=== PATIENT | female | born 2000 | race Two or more races ===

== ENCOUNTER 2025-04-02 12:49 | Inpatient (IN) | payer MEDICAID, OTHER ==
[~2025-04-02] VITALS: Ht 157.5 cm; Wt 108.6 kg
--- NOTE | 2025-04-02 13:52 | ED.PDOC ---
History of Present Illness HPI Comments 24 y/o F, presents to the ED for CC of body-pain. Patient states, she has not had anything to eat in the past x12gdmi d/t fasting and is now experiencing symptoms of body pain, nausea, and vomiting. Patient denies diarrhea, fatigue, weakness, faintness, or blurred vision. No other symptoms or modifying factors are present at this time. Chief Complaint: Body Pain Time Seen by MD: 13:45 Reviewed Notes: Nurses Notes, Medications, Allergies Allergies: Coded Allergies: NO KNOWN ALLERGIES (Unverified , 04/02/25) Information Source: Patient Mode of Arrival: Ambulatory Severity: Moderate Timing: Days Duration: Since onset Prehospital treatment: None Past Medical History PAST MEDICAL HISTORY: Denies Surgical History: Denies all surgeries TOBACCO CURER History: Denies all TOBACCO CURER Hx Family History Family History: Unknown Social History Smoker: Non-Smoker Alcohol: Denies ETOH Use Drugs: Denies Drug Use Lives In: Home Constitutional: reports: others (BODY PAIN); denies: chills, diaphoresis, fatigue, fever, malaise, sweats, weakness EENTM: denies: blurred vision, double vision, ear bleeding, ear discharge, ear drainage, ear pain, ear ringing, eye pain, eye redness, hearing loss, mouth pain, mouth swelling, nasal discharge, nose bleeding, nose congestion, nose pain, photophobia, tearing, throat pain, throat swelling, voice changes, others Respiratory: denies: cough, hemoptysis, orthopnea, SOB at rest, shortness of breath, SOB with excertion, stridor, wheezing, others Cardiovascular: denies: chest pain, dizzy spells, diaphoresis, Dyspnea on exertion, edema, irregular heart beat, left arm pain, lightheadedness, palpitations, PND, syncope, others Gastrointestinal: reports: nausea, vomiting; denies: abdomen distended, abdominal pain, blood streaked bowels, constipated, diarrhea, dysphagia, difficulty swallowing, hematemesis, melena, poor appetite, poor fluid intake, rectal bleeding, rectal pain, others Genitourinary: denies: abnormal vagina bleeding, burning, dyspareunia, dysuria, flank pain, frequency, hematuria, incontinence, pain, , vagina discharge, urgency, others Neurological: denies: dizziness, fainting, headache, left sided numbness, left sided weakness, numbness, paresthesia, pre-existing deficit, right sided numbness, right sided weakness, seizure, speech problems, tingling, tremors, weakness, others Musculoskeletal: denies: back pain, gout, joint pain, joint swelling, muscle pain, muscle stiffness, neck pain, others Integumetry: denies: bruises, change in color, change in hair/nails, dryness, laceration, lesions, lumps, rash, wounds, others Allergic/Immunocompromised: denies: Difficulty Healing, Frequent Infections, Hives, Itching, others Hematologic/Lymphatic: denies: anemia, blood clots, easy bleeding, easy bruising, swollen glands, others Endocrine: denies: excessive hunger, excessive sweating, excessive thirst, excessive urination, flushing, intolerance to cold, intolerance to heat, unexplained weight gain, unexplained weight loss, others Psychiatric: denies: anxiety, bipolar disorder, depression, hopeless, panic disorder, schizophrenia, sleepless, suicidal, others All Other Systems: Reviewed and Negative Physical Exam General Appearance: Moderate Distress, Obese HEENT: Normal ENT Inspection, Pharynx Normal, TMs Normal Neck: Full Range of Motion, Non-Tender, Normal, Normal Inspection Respiratory: Chest Non-Tender, Lungs Clear, No Accessory Muscle Use, No Respiratory Distress, Normal Breath Sounds Cardiovascular: No Edema, No JVD, No Murmur, No Gallop, Normal Peripheral Pulses, Regular Rate/Rhythm Breast Exam: Deferred Gastrointestinal: No Organomegaly, Non Tender, No Pulsatile Mass, Normal Bowel Sounds, Soft Genitalia: Deferred Pelvic: Deferred Rectal: Deferred Extremities: No calf tenderness, Normal capillary refill, Normal inspection, Normal range of motion, Non-tender, No pedal edema Musculoskeletal : Apperance: Normal Neurologic: Alert, [employer] and service director II-XII nml as Tested, No Motor Deficits, Normal Affect, Normal Mood, No Sensory Deficits Cerebellar Function: Normal Reflexes: Normal Skin: Dry, Normal Color, Warm Lymphatic: No Adenopathy Was a procedure done? Was a procedure done?: No Differential Dx Considerations may include: DEHYDRATION, ELECTROLYTE IMBALANCE X-Ray, Labs, Meds, VS Vital Signs Date Time Temp Pulse Resp B/P (MAP) Pulse Ox O2 Delivery O2 Flow Rate FiO2 04/02/25 14:32 98 15 98 Room Air* 0 21 04/02/25 13:00 97.7 98 15 135/92 (106) 98 97.7 04/02/25 12:53 97.7 98 15 135/92 98 97.7 Lab Test 04/02/25 14:13 04/02/25 14:12 Range/Units White Blood Count 8.4 4.4-10.8 10^3/uL Red Blood Count 5.34 H 4.0-5.20 10^6/uL Hemoglobin 15.9 12.2-16.2 g/dL Hematocrit 46.1 H 36.0-46.0 % Mean Corpuscular Volume 86.2 80.0-100.0 fL Mean Corpuscular Hemoglobin 29.8 28.0-32.0 pg Mean Corpuscular Hemoglobin Concent 34.5 32.0-36.0 g/dL Red Cell Distribution Width 14.4 H 11.8-14.3 % Platelet Count 313 140-450 10^3/uL Mean Platelet Volume 8.1 6.9-10.8 fL Neutrophils (%) (Auto) 65.7 37.0-80.0 % Lymphocytes (%) (Auto) 25.1 10.0-50.0 % Monocytes (%) (Auto) 8.7 0.0-12.0 % Eosinophils (%) (Auto) 0.2 0.0-7.0 % Basophils (%) (Auto) 0.3 0.0-2.0 % Neutrophils # (Auto) 5.5 1.6-8.6 10 ^3/uL Lymphocytes # (Auto) 2.1 0.4-5.4 10 ^3/uL Monocytes # (Auto) 0.7 0-1.3 10 ^3/uL Eosinophils # (Auto) 0 0-0.8 10 ^3/uL Basophils # (Auto) 0 0-0.2 10 ^3/uL Nucleated Red Blood Cells 0.0 % Sodium Level 141 136-145 mmol/L Potassium Level 4.2 3.5-5.1 mmol/L Chloride Level 108 H 98-107 mmol/L Carbon Dioxide Level 15 L 20-31 mmol/L Anion Gap 18 H 5-15 Blood Urea Nitrogen 13 9-23 mg/dL Creatinine 1.16 H 0.550-1.02 mg/dL Glomerular Filtration Rate Calc 68 >90 mL/min BUN/Creatinine Ratio 11.2 10.0-20.0 Serum Glucose 74 74-106 mg/dL Calcium Level 9.9 8.7-10.4 mg/dL Urine Color Yellow Yellow Urine Clarity Turbid H Clear Urine pH 6.0 5.0-9.0 Urine Specific [place] 1.030 1.001-1.035 Urine Protein 2+ H Negative Urine Ketones 4+ H Negative Urine Blood 1+ H Negative /uL Urine Nitrite Negative Negative Urine Bilirubin 1+ H Negative Urine Urobilinogen 3 H Negative mg/dL Urine Leukocyte Esterase Trace Negative /uL Urine RBC 4 0 - 4 /hpf Urine Microscopic WBC 8 H 0-5 /HPF Urine Squamous Epithelial Cells Mod <5 /hpf Urine Bacteria Few H None Seen /hpf Urine Mucus Few None Seen Urine Glucose Normal Normal mg/dL Urine Test Negative Negative Current Medications Medications (Trade) Dose Ordered Sig/Angel Route Start Time Stop Time Status Last Admin Sodium Chloride 1,000 ml @ 1,000 mls/hr Q1H ONCE IVB 04/02/25 14:00 04/02/25 14:59 DC 04/02/25 14:36 Ondansetron HCl (Zofran) 4 mg ONCE ONCE IV 04/02/25 14:00 04/02/25 14:01 DC 04/02/25 14:36 The patient's urine test is positive for bilirubin as well as ketones and protein The test is negative The CBC is within normal limits The chemistry panel shows a CO2 level of 15. The patient is CBCs given in signs of dehydration. We are going to admit the patient at this time The patient understands and agrees with the management. Time of 1ST Reevaluation: 14:15 Reevaluation 1ST: Unchanged Patient Education/Counseling: Diagnosis, Treatment, Prognosis Family Education/Counseling: No Family Present SEPSIS Sepsis Screen Date sepsis recognized/suspect: Apr 02, 2025 Time Sepsis recognized/suspect: 1255 Recent Procedure: No On Antibiotic Therapy: No Respiratory Rate >20: No Heart Rate >90: No Temp<36 C (96.8 F) or >38.3 C: No SBP <90 or MAP <65 mmHG: No New Acute Mental Status Change: No Is the patient on CPAP, BIPAP,: No Physician Orders Heplock Iv (04/02/25 13:51) Vital Signs Date Time Temp Pulse Resp B/P (MAP) Pulse Ox O2 Delivery O2 Flow Rate FiO2 04/02/25 14:32 98 15 98 Room Air* 0 21 04/02/25 13:00 97.7 98 15 135/92 (106) 98 97.7 04/02/25 12:53 97.7 98 15 135/92 98 97.7 Laboratory Tests Test 04/02/25 14:13 White Blood Count 8.4 10^3/uL (4.4-10.8) Medications Medications Dose Ordered Sig/Angel Route Start Time Stop Time Status Last Admin Dose Admin Ondansetron HCl 4 mg ONCE ONCE IV 04/02/25 14:00 04/02/25 14:01 DC 04/02/25 14:36 Sodium Chloride 1,000 ml @ 1,000 mls/hr Q1H ONCE IVB 04/02/25 14:00 04/02/25 14:59 DC 04/02/25 14:36 Departure 1 Departure Time of Disposition: 15:33 Impression: Primary Impression: Severe dehydration Disposition: ADMITTED INPATIENT Admit to: Med Surg Condition: Fair Critical Care Note Critical Care Time?: No Stability Stability form required: Yes Unstable for transfer: ED Physician Assesment (Clinical assesment) Heart Score Heart Score: Heart Score Response (Comments) Value History N/A 0 EKG N/A 0 Age N/A 0 Risk Factors N/A 0 Troponin N/A 0 Total 0 I personally scribed for ELLIS HOUSER MD ([email or web address]) on 04/02/25 at 13:52. Electronically submitted by Sirena Guadalupe ([email or web address]). ELLIS HOUSER MD Apr 02, 2025 13:52
[2025-04-02 14:32] VITALS: PULSE 98; RESP 15; O2SAT 98
[2025-04-02] MEDS: ONDANSETRON HCL 4 MG/2 ML VIAL IV ONE (14:36)
[2025-04-02] MEDS: SODIUM CHLORIDE 0.9% 1,000 ML IVB ONE (14:36)
[2025-04-02 14:42] LABS: Hematocrit 46.1 % (36.0-46.0); Hemoglobin 15.9 g/dL (12.2-16.2); Mean Corpuscular Hemoglobin 29.8 pg (28.0-32.0); Mean Corpuscular Volume 86.2 fL (80.0-100.0); Nucleated Red Blood Cells % 0.0 %
[2025-04-02 14:47] LABS: Urine Protein, UAD 2+ (Negative)
[2025-04-02 14:52] LABS: Potassium 4.2 mmol/L (3.5-5.1); Sodium 141 mmol/L (136-145)
[2025-04-02 14:53] LABS: Anion Gap 18 (5-15); Calcium 9.9 mg/dL (8.7-10.4)
[2025-04-02 14:58] LABS: BUN/Creatinine Ratio 11.2 (10.0-20.0); Blood Urea Nitrogen 13 mg/dL (9-23); Glucose 74 mg/dL (74-106)
[2025-04-02 15:12] LABS: Carbon Dioxide 15 mmol/L (20-31); Chloride 108 mmol/L (98-107)
--- NOTE | 2025-04-02 20:36 | DVHHPRES ---
History of Present Illness Resident Creating Document: ALEXUS SALGADO RESIDENT History of Present Illness This is a 24-year-old female without significant past medical history, presented to the ER with chief complain of abdominal pain, vomiting and headache. Patient reported that headache started 10 days back when she started fasting, pain is described as pressure-like in frontal area, 10/10, reduces in intensity with cold pack. Eventually, she started complaining of acid reflux, chest pain and abdominal pain 4 days ago. Chest pain is described as burning, 2/10, occurring with acid refluxes. She also complains being constipated since last 4 days, able to pass gas. Patient also has cramp like abdominal pain and vomiting. Abdominal pain is described as cramp like, 4/10, intermittent, radiating to the back. Vomiting started yesterday, watery, some blood seen, associated with chills. Patient also complains of increased urinary urgency. Previous hospitalization: In 2021 for fasting for 30 days PMHx: No significant surgical or medical history Family history: Father has diabetes mellitus and hypertension Social history: Denies smoking, alcohol, recreational drug use. Lives in home with family, full code, next to kin is mother and father Home medication: No home medications Allergic history: No known allergies Patient was examined at bedside today. Patient is ill-appearing, and is admitted for further evaluation and management. Review of Systems Review of Systems ROS: Constitutional: 15 lb weight loss, chills HEENT: Denies changes in vision and hearing. Respiratory: Shortness of breadth, denies cough Cardiovascular: Denies chest discomfort or palpitations GI: Abdominal pain, nausea, vomiting, constipation : Increased urinary frequency Musculoskeletal: Myalgias Skin: Denies rash and pruritus. Neurological: Dizziness, headache, denies vision changes or hearing changes Allergies: Coded Allergies: NO KNOWN ALLERGIES (Unverified , 04/02/25) Exam Vital Signs Vital Signs Date Time Temp Pulse Resp B/P (MAP) Pulse Ox O2 Delivery O2 Flow Rate FiO2 04/02/25 14:32 98 15 98 Room Air* 0 21 04/02/25 13:00 97.7 135/92 (106) 97.7 Exam General: Patient alert and oriented in person, place and time. Patient following commands. HEENT: Normocephalic, atraumatic, moist mucous membranes Respiratory/pulmonary: Clear lungs bilaterally, vesicular murmurs present in almost all lung martinez, no associated crackles or wheezes. Cardiovascular: Normal heart sounds S1 and S2 with no associated murmurs Abdomen: Abdominal tenderness in epigastric area, no palpable masses, soft abdomen Extremities: There is no peripheral edema present at the lower extremities. Peripheral Pulses: 3+ Radial (R). 3+ Radial (L). 3+ Dorsalis pedis (R). 3+ Dorsalis pedis(L) Skin: No rashes or pruritus, there is no sacral edema present at this time. Neurological: Intact cranial nerves with no focal neurologic deficits Labs/Xrays Labs Test 04/02/25 14:13 04/02/25 14:12 Range/Units White Blood Count 8.4 4.4-10.8 10^3/uL Red Blood Count 5.34 H 4.0-5.20 10^6/uL Hemoglobin 15.9 12.2-16.2 g/dL Hematocrit 46.1 H 36.0-46.0 % Mean Corpuscular Volume 86.2 80.0-100.0 fL Mean Corpuscular Hemoglobin 29.8 28.0-32.0 pg Mean Corpuscular Hemoglobin Concent 34.5 32.0-36.0 g/dL Red Cell Distribution Width 14.4 H 11.8-14.3 % Platelet Count 313 140-450 10^3/uL Mean Platelet Volume 8.1 6.9-10.8 fL Neutrophils (%) (Auto) 65.7 37.0-80.0 % Lymphocytes (%) (Auto) 25.1 10.0-50.0 % Monocytes (%) (Auto) 8.7 0.0-12.0 % Eosinophils (%) (Auto) 0.2 0.0-7.0 % Basophils (%) (Auto) 0.3 0.0-2.0 % Neutrophils # (Auto) 5.5 1.6-8.6 10 ^3/uL Lymphocytes # (Auto) 2.1 0.4-5.4 10 ^3/uL Monocytes # (Auto) 0.7 0-1.3 10 ^3/uL Eosinophils # (Auto) 0 0-0.8 10 ^3/uL Basophils # (Auto) 0 0-0.2 10 ^3/uL Nucleated Red Blood Cells 0.0 % Sodium Level 141 136-145 mmol/L Potassium Level 4.2 3.5-5.1 mmol/L Chloride Level 108 H 98-107 mmol/L Carbon Dioxide Level 15 L 20-31 mmol/L Anion Gap 18 H 5-15 Blood Urea Nitrogen 13 9-23 mg/dL Creatinine 1.16 H 0.550-1.02 mg/dL Glomerular Filtration Rate Calc 68 >90 mL/min BUN/Creatinine Ratio 11.2 10.0-20.0 Serum Glucose 74 74-106 mg/dL Calcium Level 9.9 8.7-10.4 mg/dL Urine Color Yellow Yellow Urine Clarity Turbid H Clear Urine pH 6.0 5.0-9.0 Urine Specific [place] 1.030 1.001-1.035 Urine Protein 2+ H Negative Urine Ketones 4+ H Negative Urine Blood 1+ H Negative /uL Urine Nitrite Negative Negative Urine Bilirubin 1+ H Negative Urine Urobilinogen 3 H Negative mg/dL Urine Leukocyte Esterase Trace Negative /uL Urine RBC 4 0 - 4 /hpf Urine Microscopic WBC 8 H 0-5 /HPF Urine Squamous Epithelial Cells Mod <5 /hpf Urine Bacteria Few H None Seen /hpf Urine Mucus Few None Seen Urine Glucose Normal Normal mg/dL Urine Test Negative Negative SEPSIS Sepsis Screen Date sepsis recognized/suspect: Apr 02, 2025 Time Sepsis recognized/suspect: 1255 Recent Procedure: No On Antibiotic Therapy: No Respiratory Rate >20: No Heart Rate >90: No Temp<36 C (96.8 F) or >38.3 C: No SBP <90 or MAP <65 mmHG: No New Acute Mental Status Change: No Is the patient on CPAP, BIPAP,: No Physician Orders Heplock Iv (04/02/25 13:51) Vital Signs Date Time Temp Pulse Resp B/P (MAP) Pulse Ox O2 Delivery O2 Flow Rate FiO2 04/02/25 14:32 98 15 98 Room Air* 0 21 04/02/25 13:00 97.7 98 15 135/92 (106) 98 97.7 04/02/25 12:53 97.7 98 15 135/92 98 97.7 Laboratory Tests Test 04/02/25 14:13 White Blood Count 8.4 10^3/uL (4.4-10.8) Medications Medications Dose Ordered Sig/Angel Route Start Time Stop Time Status Last Admin Dose Admin Ondansetron HCl 4 mg ONCE ONCE IV 04/02/25 14:00 04/02/25 14:01 DC 04/02/25 14:36 4 MG Sodium Chloride 1,000 ml @ 1,000 mls/hr Q1H ONCE IVB 04/02/25 14:00 04/02/25 14:59 DC 04/02/25 14:36 1,000 MLS/HR Assessment/Plan Assessment/Plan Complicated UTI Severe dehydration HEMA hemodynamically mediated (VMN) U/A: positive for UTI Blood culture, urine culture ordered Gonorrhea, chlamydia, HIV test ordered Started on IV Zosyn 3.75 mg q.8 Avoiding nephrotoxins like NSAIDS, contrast Low salt diet, maintain hydration Repeat BMP Fasting ketoacidosis Metabolic acidosis secondary to above Elevated chloride, low HC03, anion gap 18, elevated beta hydroxybutyrate ABG shows pH 7.2, HC03 10 Monitor BMP Phosphate supplementation, started clear liquid diet, Zofran; Advance as tolerated Acute infectious Gastroenteritis, possibly Gastritis, possibly IV Zosyn q8 Continue Carafate 1 g b.i.d., Protonix 40 mg daily Clear liquid diet, advanced as tolerated KUB upright ordered Hepatic steatosis Transaminitis Hyperlipidemia Ultrasound shows [id number] hepatic steatosis DIET: Clear liquid diet DVT PROPHYLAXIS: Lovenox GI PROPHYLAXIS: Protonix CODE STATUS: Goals of care discussed with patient at bedside for more than 35 minutes. Full code DISPOSITION: Med/surge Patient's status and plan discussed with the patient. Case discussed with Dr. Gilbert Plan discussed with: Patient, Other (Nurses) Date of Service: Apr 02, 2025 Billing Provider: AMANDA BURROWS MD Common Visit Codes: 23756-[id number] INP/OBS CARE (HIGH) Secondary Visit Codes: 21312-[id number] CARE PLAN 30 MINUTES ALEXUS SALGADO RESIDENT Apr 02, 2025 20:36 JUAN TRUJILLO RESIDENT Apr 03, 2025 09:32
[2025-04-02 21:10] LABS: Alkaline Phosphatase 101.0 U/L (46-116); Bilirubin, Direct 0.2 mg/dL (<0.3); Bilirubin, Total 0.7 mg/dL (0.2-1.0); Magnesium 2.0 mg/dL (1.6-2.6); Triglycerides 106.0 mg/dL (< 150)
[2025-04-02 21:14] LABS: Alanine Aminotransferase 184.0 U/L (7-40); Albumin 5.3 g/dL (3.2-4.8); Cholesterol 216.0 mg/dL (< 200); HDL Cholesterol 37.0 mg/dL (40-59); Total Protein 9.2 g/dL (5.7-8.2)
[2025-04-02 21:43] LABS: INR 1.13 (0.9-1.15); Partial Thromboplastin Time 28.7 SEC (24.5-34.5); Prothrombin Time 11.8 sec (9.3-11.8)
[2025-04-02 21:44] LABS: Amphetamine Screen, Urine Neg (NEGATIVE); Barbiturate Scree,Urine Neg (NEGATIVE); Benzodiazephine Screen, Urine Neg (NEGATIVE); Cannabinoid Screen, Urine Neg (NEGATIVE); Cocaine Screen, Urine Neg (NEGATIVE); Opiate Scree,Urine Neg (NEGATIVE); Phencyclidine Screen, Urine Neg (NEGATIVE)
[2025-04-02] MEDS ORDERED: MORPHINE SULFATE INJ 2 MG/ml SYRG IV PRN (21:45)
[2025-04-02] MEDS: SODIUM CHLORIDE 0.9% 250 ML IV ONE (21:45)
[2025-04-02] MEDS: POTASSIUM PHOSPHATE 22 MEQ in SODIUM CHL 0.9% 100 ML IV ONE (22:15)
--- NOTE | 2025-04-02 22:56 | DVH ---
Bilateral lower extremity venous duplex Clinical History: Bilateral lower extremity swelling Comparison: None Technique: Duplex Doppler evaluation of the deep venous systems of both lower extremities from the common femora l veins to the popliteal veins including color Doppler and spectral/pulsed waveform analysis was perf ormed. Findings: RIGHT SIDE: The common femoral vein demonstrates appropriate compressibility and waveform variability. There is compressibility/patency of the great saphenous vein at the proximal thigh. The femoral vein demonstrates appropriate compressibility and waveform variability. The deep femoral vein demonstrates appropriate compressibility and waveform variability. The popliteal vein demonstrates appropriate compressibility and waveform variability. There is normal compressibility at the tibioperoneal trunk. LEFT SIDE: The common femoral vein demonstrates appropriate compressibility and waveform variability. There is compressibility/patency of the great saphenous vein at the proximal thigh. The femoral vein demonstrates appropriate compressibility and waveform variability. The deep femoral vein demonstrates appropriate compressibility and waveform variability. The popliteal vein demonstrates appropriate compressibility and waveform variability. There is normal compressibility at the tibioperoneal trunk. Impression: No right or left femoropopliteal venous thrombosis.
--- NOTE | 2025-04-02 22:57 | DVH ---
INDICATION: Transaminitis TECHNIQUE: Multiple real-time sonographic images were obtained of the right upper quadrant. COMPARISON: None FINDINGS: Liver measures 14.4 cm with moderate to severe diffuse fatty infiltration. There is no intrahepatic or extrahepatic ductal dilatation. The common duct is not well seen. The gallbladder is without evidence of stone or sludge. The gallbladder wall measures 0.2 cm and is w ithin normal limits. The right kidney measures 9.5 cm. The right kidney is normal in contour, size, and shape. The echogen icity is normal. There is no hydronephrosis. The pancreas is not well visualized due to overlying bowel gas. IMPRESSION: No acute abnormality. Moderate to severe hepatic steatosis.
[2025-04-02 23:03] LABS: Base Excess -13.8 mmol/L (-2.0-3.0)
[2025-04-02] MEDS: ENOXAPARIN SOD 40 MG/0.4 ML SYRINGE SC SCH (23:37)
[2025-04-03] MEDS: PANTOPRAZOLE 40 MG/10 ML VIAL INJ IV ONE (02:24)
[2025-04-03] MEDS: SODIUM CHLORIDE 0.9% 1,000 ML IV SCH (02:25)
[2025-04-03] MEDS: SODIUM CHLORIDE 0.9% 500 ML IV ONE (02:25)
[2025-04-03 03:32] LABS: Hematocrit 38.4 % (36.0-46.0); Hemoglobin 13.0 g/dL (12.2-16.2); Mean Corpuscular Hemoglobin 29.4 pg (28.0-32.0); Mean Corpuscular Volume 87.1 fL (80.0-100.0); Nucleated Red Blood Cells % 0.0 %
[2025-04-03 03:51] LABS: Albumin 4.0 g/dL (3.2-4.8); Alkaline Phosphatase 79 U/L (46-116); Anion Gap 18 (5-15); BUN/Creatinine Ratio 7.9 (10.0-20.0); Bilirubin, Total 0.5 mg/dL (0.2-1.0); Potassium 3.9 mmol/L (3.5-5.1); Sodium 144 mmol/L (136-145); Total Protein 7.2 g/dL (5.7-8.2)
[2025-04-03 04:12] LABS: Alanine Aminotransferase 128 U/L (7-40); Blood Urea Nitrogen 7 mg/dL (9-23); Calcium 8.5 mg/dL (8.7-10.4); Carbon Dioxide 14 mmol/L (20-31); Chloride 112 mmol/L (98-107); Glucose 71 mg/dL (74-106)
--- NOTE | 2025-04-03 07:15 | DVH ---
ABDOMINAL RADIOGRAPH Indication: Rule out obstruction Technique: Single frontal view of the abdomen was obtained Comparison: None FINDINGS: Lines and tubes: None There is a nonobstructive bowel gas pattern. No supine radiographic evidence of pneumoperitoneum. Bon y structures unremarkable. IMPRESSION: 1. Nonobstructive bowel gas pattern.
[2025-04-03 09:00] VITALS: BP 129/72; PULSE 98; RESP 17; TEMP 98.4; O2SAT 99
[2025-04-03] MEDS: PANTOPRAZOLE 40 MG/10 ML VIAL INJ IV SCH (10:00)
[2025-04-03 10:01] LABS: Magnesium 1.8 mg/dL (1.6-2.6)
[2025-04-03 10:10] LABS: Hepatitis B Surface Antigen Negative (Negative)
[2025-04-03] MEDS: D5W 5% 1,000 ML IV SCH (10:24)
[2025-04-03 10:26] LABS: Hepatitis C Antibody Negative (Negative)
--- NOTE | 2025-04-03 13:26 | DVHPNRES ---
Progress Note Date Seen: Apr 03, 2025 Resident Creating Document: NADIA CISNEROS RESIDENT Medical Necessity Reason Pt with a Central, PICC or Fol: No Subjective Review of Systems This is a 24-year-old female without significant past medical history, presented to the ER with chief complain of abdominal pain, vomiting and headache. Patient reported that headache started 10 days back when she started fasting, pain is described as pressure-like in frontal area, 10/10, reduces in intensity with cold pack. Eventually, she started complaining of acid reflux, chest pain and abdominal pain 4 days ago. Chest pain is described as burning, 2/10, occurring with acid refluxes. She also complains being constipated since last 4 days, able to pass gas. Patient also has cramp like abdominal pain and vomiting. Abdominal pain is described as cramp like, 4/10, intermittent, radiating to the back. Vomiting started yesterday, watery, some blood seen, associated with chills. Patient also complains of increased urinary urgency. Initial lab workup revealed in case anion gap 18, hemoglobin A1c 5.1, AST 112, ALT 184, LDL> 168, beta hydroxybutyrate 4.5, urinalysis revealed ketones 4+, leukocyte esterase trace, WBC 8, bacteria few. Doppler study negative for DVT, liver ultrasound hepatic steatosis, chest x-ray no acute abnormality. Previous hospitalization: In 2021 for fasting for 30 days PMHx: No significant surgical or medical history Family history: Father has diabetes mellitus and hypertension Social history: Denies smoking, alcohol, recreational drug use. Lives in home with family, full code, next to kin is mother and father Home medication: No home medications Allergic history: No known allergies Patient was seen today at bedside, labs and chart reviewed. Patient reported feeling tired. Patient on IV fluid. On ceftriaxone for UTI. Ordered stool WBC, stool bacterial culture. On IV normal saline. Objective vital signs Vital Sign Date Time Temp Pulse Resp B/P (MAP) Pulse Ox O2 Delivery O2 Flow Rate FiO2 04/02/25 21:51 98.8 117 15 132/89 (103) 96 98.8 04/02/25 14:32 Room Air* 0 21 Total Intake and Output 04/02/25 04/02/25 04/03/25 15:00 23:00 07:00 Intake Total 1000 ml Balance 1000 ml medications Current Medications Medications Dose Ordered Sig/Anegl Route Start Time Stop Time Status Last Admin Dose Admin Acetaminophen 325 mg Q4HP PRN PO 04/02/25 21:45 Morphine Sulfate 2 mg Q4HPRN PRN IV 04/02/25 21:45 Enoxaparin Sodium 40 mg DAILY SC 04/02/25 21:45 04/02/25 23:37 40 MG Ceftriaxone Sodium 50 ml @ 100 mls/hr Q24H IV 04/03/25 21:00 Ondansetron HCl 4 mg Q4HPRN PRN IV 04/02/25 22:15 Pantoprazole Sodium 40 mg DAILY IV 04/03/25 10:00 Sucralfate 1 gm BID@0600,2200 GT 04/03/25 22:00 Dextrose 1,000 ml @ 75 mls/hr [id number] IV 04/03/25 09:30 04/03/25 10:24 75 MLS/HR Metronidazole 100 ml @ 100 mls/hr Q8HR IV 04/03/25 14:00 Examination General examination- HEENT- PEERLA, no acute nasal discharge Cardiovascular- S1-S2 audible, rate and rhythm regular, no murmur Respiratory- CTAB, no wheeze or rhonchi Gastrointestinal-mild abdominal tenderness+, , bowel sound+. Nondistended Musculoskeletal-no acute joint swelling or tenderness or redness Lower extremity- no leg edema Neurological- cranial nerves intact, no acute dysarthria or dysphagia Psychiatry- denies depression or SI or HI Skin- no acute rash or purpura laboratory and microbiology Laboratory Tests 04/03/25 02:56 Test 04/03/25 02:56 Range/Units Serum Glucose 71 L 74-106 mg/dL Microbiology Date/Time Source Procedure Growth Status 04/02/25 14:12 Voided Urine Urine Culture - Preliminary Resulted Problem List/Assessment/Plan Problem List/Assessment/Plan Assessment/Plan #Complicated UTI #Severe dehydration #HEMA hemodynamically mediated (VMN) -U/A: positive for UTI -Blood culture, urine culture ordered -Gonorrhea, chlamydia, HIV test ordered -on ceftriaxone and Metrogel Avoiding nephrotoxins like NSAIDS, contrast Low salt diet, maintain hydration Repeat BMP #Fasting /starvation ketoacidosis #Metabolic acidosis secondary to above -Elevated chloride, low HC03, anion gap 18, elevated beta hydroxybutyrate -ABG shows pH 7.2, HC03 10 Monitor BMP -Phosphate supplementation, started clear liquid diet, Zofran; Advance as tolerated #Acute infectious Gastroenteritis, possibly #Gastritis, possibly -continue IV fluid as prescribed Continue Protonix 40 mg daily Mechanical soft diet #Hepatic steatosis #Transaminitis #Hyperlipidemia -Ultrasound shows [id number] hepatic steatosis -monitor LFT Goals of care, Code status full code ; discussed with >15 minutes PUD prophylaxis: Pantoprazole DVT prophylaxis: Patient ambulating Plan discussed with Dr. Samayoa , nursing staff, Total time spent on patient evaluation, chart review, assessment and plan, discussion discussion >35 minutes Plan discussed with: Patient, Other (RN) Date of Service: Apr 03, 2025 Billing Provider: TA SAMAYOA MD, MOHAMMED RESIDENT Apr 03, 2025 13:26
[2025-04-03] MEDS: SODIUM CHLORIDE 0.9% 1,000 ML IV ONE (13:30)
[2025-04-03] MEDS ORDERED: SODIUM CHLORIDE 0.9% 1,000 ML IV SCH (13:30)
[2025-04-03] MEDS ORDERED: SODIUM CHLORIDE 0.9% 1,000 ML IV ONE (15:45)
[2025-04-03] MEDS: LACTATED RINGER'S 1,000 ML IV ONE (16:33)
[2025-04-03 17:00] VITALS: BP 123/88; PULSE 93; RESP 18; TEMP 98.4; O2SAT 100
[2025-04-03] MEDS: ACETAMINOPHEN 325 MG TAB PO PRN (18:52)
[2025-04-03] MEDS: SUCRALFATE 1 GM/10 ML ORAL SUSP GT ONE (20:08)
[2025-04-03] MEDS: LACTULOSE 20Gm/30ML SOLN PO ONE (21:30)
[2025-04-03] MEDS: SUCRALFATE 1 GM/10 ML ORAL SUSP GT SCH (22:00)
[2025-04-04 04:45] LABS: Hematocrit 37.4 % (36.0-46.0); Hemoglobin 13.1 g/dL (12.2-16.2); Mean Corpuscular Hemoglobin 30.0 pg (28.0-32.0); Mean Corpuscular Volume 85.4 fL (80.0-100.0); Nucleated Red Blood Cells % 0.1 %
[2025-04-04 04:55] LABS: Albumin 4.3 g/dL (3.2-4.8); Alkaline Phosphatase 81 U/L (46-116); Anion Gap 17 (5-15); Calcium 8.9 mg/dL (8.7-10.4); Glucose 78 mg/dL (74-106); Magnesium 1.7 mg/dL (1.6-2.6); Sodium 143 mmol/L (136-145); Total Protein 7.5 g/dL (5.7-8.2)
[2025-04-04 04:56] LABS: Bilirubin, Total 0.5 mg/dL (0.2-1.0)
[2025-04-04 05:00] VITALS: BP 117/60; PULSE 85; RESP 20; TEMP 98.4; O2SAT 97
[2025-04-04 05:03] LABS: Alanine Aminotransferase 127 U/L (7-40); BUN/Creatinine Ratio 5.4 (10.0-20.0); Blood Urea Nitrogen < 5 mg/dL (9-23); Carbon Dioxide 18 mmol/L (20-31); Chloride 108 mmol/L (98-107); Potassium 3.5 mmol/L (3.5-5.1)
[2025-04-04] MEDS: SODIUM CHLORIDE 0.9% 1,000 ML IV ONE (08:00)
[2025-04-04 09:10] VITALS: BP 136/81; PULSE 129; RESP 22; TEMP 98; O2SAT 98
[2025-04-04] MEDS: LACTATED RINGER'S 1,000 ML IV ONE (10:18)
[2025-04-04] MEDS: ONDANSETRON HCL 4 MG/2 ML VIAL IV PRN (10:22)
[2025-04-04 13:00] VITALS: BP 112/69; PULSE 85; RESP 18; TEMP 98.5; O2SAT 98
[2025-04-04] MEDS: LACTULOSE 20Gm/30ML SOLN PO ONE (13:59)
[2025-04-04] MEDS: POTASSIUM PHOSPHATE 22 MEQ in SODIUM CHL 0.9% 100 ML IV ONE (14:05)
[2025-04-04 14:30] VITALS: BP 126/81; PULSE 95; RESP 16; TEMP 98.5; O2SAT 97
--- NOTE | 2025-04-04 15:18 | DVHPNRES ---
Progress Note Date Seen: Apr 04, 2025 Resident Creating Document: NADIA CISNEROS RESIDENT Medical Necessity Reason Pt with a Central, PICC or Fol: No Subjective Review of Systems This is a 24-year-old female without significant past medical history, presented to the ER with chief complain of abdominal pain, vomiting and headache. Patient reported that headache started 10 days back when she started fasting, pain is described as pressure-like in frontal area, 10/10, reduces in intensity with cold pack. Eventually, she started complaining of acid reflux, chest pain and abdominal pain 4 days ago. Chest pain is described as burning, 2/10, occurring with acid refluxes. She also complains being constipated since last 4 days, able to pass gas. Patient also has cramp like abdominal pain and vomiting. Abdominal pain is described as cramp like, 4/10, intermittent, radiating to the back. Vomiting started yesterday, watery, some blood seen, associated with chills. Patient also complains of increased urinary urgency. Initial lab workup revealed in case anion gap 18, hemoglobin A1c 5.1, AST 112, ALT 184, LDL> 168, beta hydroxybutyrate 4.5, urinalysis revealed ketones 4+, leukocyte esterase trace, WBC 8, bacteria few. Doppler study negative for DVT, liver ultrasound hepatic steatosis, chest x-ray no acute abnormality. Previous hospitalization: In 2021 for fasting for 30 days PMHx: No significant surgical or medical history Family history: Father has diabetes mellitus and hypertension Social history: Denies smoking, alcohol, recreational drug use. Lives in home with family, full code, next to kin is mother and father Home medication: No home medications Allergic history: No known allergies Patient was seen today at bedside, labs and chart reviewed. Patient reported nausea, had 1 tab mild vomiting, no blood. Feeling tired. Ordered IV fluid. We will continue monitoring. Urinalysis negative for UTI. Objective vital signs Vital Sign Date Time Temp Pulse Resp B/P (MAP) Pulse Ox O2 Delivery O2 Flow Rate FiO2 04/04/25 13:00 98.5 85 18 112/69 (83) 98 98.5 04/02/25 14:32 Room Air* 0 21 Total Intake and Output 04/03/25 04/03/25 04/04/25 15:00 23:00 07:00 Intake Total 770 ml 100 ml Balance 770 ml 100 ml medications Current Medications Medications Dose Ordered Sig/Angel Route Start Time Stop Time Status Last Admin Dose Admin Acetaminophen 325 mg Q4HP PRN PO 04/02/25 21:45 04/04/25 10:24 325 MG Morphine Sulfate 2 mg Q4HPRN PRN IV 04/02/25 21:45 Ceftriaxone Sodium 50 ml @ 100 mls/hr Q24H IV 04/03/25 21:00 04/03/25 21:10 100 MLS/HR Ondansetron HCl 4 mg Q4HPRN PRN IV 04/02/25 22:15 04/04/25 10:22 4 MG Pantoprazole Sodium 40 mg DAILY IV 04/03/25 10:00 04/04/25 10:21 40 MG Metronidazole 100 ml @ 100 mls/hr Q8HR IV 04/03/25 14:00 04/04/25 06:10 100 MLS/HR Examination General examination- awake, alert, oriented HEENT- PEERLA, no acute nasal discharge Cardiovascular- S1-S2 audible, rate and rhythm regular, no murmur Respiratory- CTAB, no wheeze or rhonchi Gastrointestinal-abdomen nontender , bowel sound+. Nondistended Musculoskeletal-no acute joint swelling or tenderness or redness Lower extremity- no leg edema Neurological- cranial nerves intact, no acute dysarthria or dysphagia Psychiatry- denies depression or SI or HI Skin- no acute rash or purpura laboratory and microbiology Laboratory Tests 04/04/25 03:47 Test 04/04/25 03:47 Range/Units Serum Glucose 78 74-106 mg/dL Microbiology Date/Time Source Procedure Growth Status 04/02/25 14:12 Voided Urine Urine Culture - Preliminary Resulted Problem List/Assessment/Plan Problem List/Assessment/Plan Assessment/Plan #Complicated UTI #Severe dehydration #HEMA hemodynamically mediated (VMN) -U/A: positive for UTI -Blood culture, urine culture ordered -Gonorrhea, chlamydia, HIV test ordered -on ceftriaxone and metronidazole Avoiding nephrotoxins like NSAIDS, contrast Low salt diet, maintain hydration Repeat BMP -urine culture negative #Fasting /starvation ketoacidosis #Metabolic acidosis secondary to above -Elevated chloride, low HC03, anion gap 18, elevated beta hydroxybutyrate -ABG shows pH 7.2, HC03 10 Monitor BMP -Phosphate supplementation, started clear liquid diet, Zofran; Advance as tolerated #Acute infectious Gastroenteritis, possibly #Gastritis, possibly -continue IV fluid as prescribed Continue Protonix 40 mg daily Mechanical soft diet #Hepatic steatosis #Transaminitis #Hyperlipidemia -Ultrasound shows [id number] hepatic steatosis -monitor LFT Goals of care, Code status full code ; discussed with >15 minutes PUD prophylaxis: Pantoprazole DVT prophylaxis: Patient ambulating Plan discussed with Dr. Genao , nursing staff, Total time spent on patient evaluation, chart review, assessment and plan, discussion discussion >35 minutes Plan discussed with: Patient, Other (RN, father) My Orders My Orders Orders - NADIA CISNEROS Procedure Category Date Status Time Potassium Phosphate PHA 04/04/25 In Process 12:00 Clear Liq Diet DIET 04/04/25 Transmitted Lunch Electrocardigram EKG 04/04/25 Logged 11:59 Date of Service: Apr 04, 2025 Billing Provider: NADIA CISNEROS MOHAMMED RESIDENT Apr 04, 2025 15:18
[2025-04-04] MEDS ORDERED: HYDROcodone-ACET 5/325MG TAB PO PRN (15:30)
[2025-04-04] MEDS: HYDROcodone-ACET 5/325MG TAB PO ONE (17:03)
[2025-04-04 19:28] LABS: Alkaline Phosphatase 80 U/L (46-116); Anion Gap 17 (5-15); Calcium 8.9 mg/dL (8.7-10.4); Chloride 107 mmol/L (98-107); Glucose 77 mg/dL (74-106); Sodium 143 mmol/L (136-145); Total Protein 7.0 g/dL (5.7-8.2)
[2025-04-04 19:29] LABS: Albumin 4.1 g/dL (3.2-4.8); Bilirubin, Total 0.5 mg/dL (0.2-1.0)
[2025-04-04 19:32] LABS: Alanine Aminotransferase 123 U/L (7-40); BUN/Creatinine Ratio 6.3 (10.0-20.0); Blood Urea Nitrogen < 5 mg/dL (9-23); Carbon Dioxide 19 mmol/L (20-31); Potassium 3.0 mmol/L (3.5-5.1)
[2025-04-04 20:00] VITALS: PULSE 88; RESP 18; O2SAT 99
[2025-04-04 21:18] VITALS: BP 111/70; PULSE 87; RESP 16; TEMP 97.1; O2SAT 98
[2025-04-05] MEDS: POTASSIUM CHL 20 Meq TABLET PO ONE ×2 (00:25→08:08)
[2025-04-05 01:00] VITALS: BP 109/77; PULSE 81; RESP 17; TEMP 97.5; O2SAT 97
[2025-04-05 06:04] LABS: Hematocrit 33.4 % (36.0-46.0); Hemoglobin 11.6 g/dL (12.2-16.2); Mean Corpuscular Hemoglobin 29.6 pg (28.0-32.0); Mean Corpuscular Volume 85.0 fL (80.0-100.0); Nucleated Red Blood Cells % 0.1 %
[2025-04-05 06:27] LABS: Albumin 3.6 g/dL (3.2-4.8); Alkaline Phosphatase 69 U/L (46-116); Anion Gap 15 (5-15); Calcium 8.7 mg/dL (8.7-10.4); Carbon Dioxide 20 mmol/L (20-31); Chloride 107 mmol/L (98-107); Magnesium 1.7 mg/dL (1.6-2.6); Sodium 142 mmol/L (136-145); Total Protein 6.4 g/dL (5.7-8.2)
[2025-04-05 06:28] LABS: Bilirubin, Total 0.5 mg/dL (0.2-1.0)
[2025-04-05 06:31] LABS: Alanine Aminotransferase 105 U/L (7-40); BUN/Creatinine Ratio 6.6 (10.0-20.0); Blood Urea Nitrogen < 5 mg/dL (9-23); Glucose 71 mg/dL (74-106); Potassium 3.3 mmol/L (3.5-5.1)
--- NOTE | 2025-04-05 07:38 | ECG ---
[facility] Test Date: 2025-04-04 Test Time: 12:55:28 Pat Name: FLORENCE MUNOZ Department: Respiratoy Room: [address] [place] [address] 1 Gender: F Restaurant Operations Manager: FOSTER : 2000 Requested By: NADIA CISNEROS Order Number: [id number] Reading MD: Reggie Iraheta Measurements Intervals [place] Rate: 89 P: 72 WI: 147 QRS: 38 QRSD: 87 T: 5 QT: 351 QTc: 428 Interpretive Statements Sinus rhythm Electronically Signed On 04-05-2025 9:07:18 PDT by Reggie Iraheta Please click the below link to view image of tracing.
[2025-04-05 08:00] VITALS: PULSE 78; RESP 18; O2SAT 99
[2025-04-05 09:00] VITALS: BP 104/71; PULSE 92; RESP 16; TEMP 98.2; O2SAT 99
[2025-04-05] MEDS: MAALOX PLUS or MAALOX 30 ML PO ONE (12:00)
[2025-04-05 13:31] VITALS: BP 101/65; PULSE 82; RESP 16; TEMP 98.1; O2SAT 98
[2025-04-05] MEDS: MAALOX PLUS or MAALOX 30 ML PO SCH (14:00)
--- NOTE | 2025-04-05 14:24 | DVHPNRES ---
Progress Note Date Seen: Apr 05, 2025 Resident Creating Document: NADIA CISNEROS RESIDENT Medical Necessity Reason Pt with a Central, PICC or Fol: No Subjective Review of Systems This is a 24-year-old female without significant past medical history, presented to the ER with chief complain of abdominal pain, vomiting and headache. Patient reported that headache started 10 days back when she started fasting, pain is described as pressure-like in frontal area, 10/10, reduces in intensity with cold pack. Eventually, she started complaining of acid reflux, chest pain and abdominal pain 4 days ago. Chest pain is described as burning, 2/10, occurring with acid refluxes. She also complains being constipated since last 4 days, able to pass gas. Patient also has cramp like abdominal pain and vomiting. Abdominal pain is described as cramp like, 4/10, intermittent, radiating to the back. Vomiting started yesterday, watery, some blood seen, associated with chills. Patient also complains of increased urinary urgency. Initial lab workup revealed in case anion gap 18, hemoglobin A1c 5.1, AST 112, ALT 184, LDL> 168, beta hydroxybutyrate 4.5, urinalysis revealed ketones 4+, leukocyte esterase trace, WBC 8, bacteria few. Doppler study negative for DVT, liver ultrasound hepatic steatosis, chest x-ray no acute abnormality. Previous hospitalization: In 2021 for fasting for 30 days PMHx: No significant surgical or medical history Family history: Father has diabetes mellitus and hypertension Social history: Denies smoking, alcohol, recreational drug use. Lives in home with family, full code, next to kin is mother and father Home medication: No home medications Allergic history: No known allergies Patient was seen today at bedside, labs and chart reviewed. Patient reported nausea, vomiting. Hypokalemia corrected. Patient reports feeling fatigued and tired. Stool for WBC negative. Objective vital signs Vital Sign Date Time Temp Pulse Resp B/P (MAP) Pulse Ox O2 Delivery O2 Flow Rate FiO2 04/05/25 13:31 98.1 82 16 101/65 (77) 98 98.1 04/05/25 08:00 Room Air* 0 21 Total Intake and Output 04/04/25 04/04/25 04/05/25 15:00 23:00 07:00 Intake Total 100 ml 800 ml Balance 100 ml 800 ml medications Current Medications Medications Dose Ordered Sig/Angel Route Start Time Stop Time Status Last Admin Dose Admin Acetaminophen 325 mg Q4HP PRN PO 04/02/25 21:45 04/05/25 08:29 325 MG Morphine Sulfate 2 mg Q4HPRN PRN IV 04/02/25 21:45 Ceftriaxone Sodium 50 ml @ 100 mls/hr Q24H IV 04/03/25 21:00 04/04/25 21:50 100 MLS/HR Ondansetron HCl 4 mg Q4HPRN PRN IV 04/02/25 22:15 04/05/25 08:23 4 MG Metronidazole 100 ml @ 100 mls/hr Q8HR IV 04/03/25 14:00 04/05/25 14:18 100 MLS/HR Al Hydrox/Mg Hydrox/Simethicone 15 ml Q8HP PO 04/05/25 14:00 Al Hydrox/Mg Hydrox/Simethicone 30 ml Q8HP PRN PO 04/05/25 11:15 Pantoprazole Sodium 40 mg BID@0600,1700 PO 04/05/25 17:00 Examination General examination- awake, alert, oriented HEENT- PEERLA, no acute nasal discharge Cardiovascular- S1-S2 audible, rate and rhythm regular, no murmur Respiratory- CTAB, no wheeze or rhonchi Gastrointestinal-abdomen nontender , bowel sound+. Nondistended Musculoskeletal-no acute joint swelling or tenderness or redness Lower extremity- no leg edema Neurological- cranial nerves intact, no acute dysarthria or dysphagia Psychiatry- denies depression or SI or HI Skin- no acute rash or purpura laboratory and microbiology Laboratory Tests 04/05/25 12:45 04/05/25 04:50 Test 04/05/25 04:50 Range/Units Serum Glucose 71 L 74-106 mg/dL Microbiology Date/Time Source Procedure Growth Status 04/04/25 15:30 Stool Stool Culture - Preliminary Resulted 04/04/25 15:30 Stool Shiga Toxin I & II Pending Resulted 04/02/25 14:12 Voided Urine Urine Culture - Final Complete Problem List/Assessment/Plan Problem List/Assessment/Plan Assessment/Plan # suspected UTI #Severe dehydration # suspected acute gastroenteritis #HEMA hemodynamically mediated (VMN) -U/A: positive for UTI -on ceftriaxone and metronidazole Avoiding nephrotoxins like NSAIDS, contrast -urine culture negative #Fasting /starvation ketoacidosis #Metabolic acidosis secondary to above -Elevated chloride, low HC03, anion gap 18, elevated beta hydroxybutyrate -ABG shows pH 7.2, HC03 10 Monitor BMP -Phosphate supplementation, Zofran PRN #Acute infectious Gastroenteritis, possibly #Gastritis, possibly -continue IV fluid as prescribed Continue Protonix 40 mg daily Full liquid diet -ordered Maalox -continue current management #Hepatic steatosis #Transaminitis #Hyperlipidemia -Ultrasound shows [id number] hepatic steatosis -monitor LFT Goals of care, Code status full code ; discussed with >15 minutes PUD prophylaxis: Pantoprazole DVT prophylaxis: Patient ambulating Plan discussed with Dr. Genao , nursing staff, Total time spent on patient evaluation, chart review, assessment and plan, discussion discussion >35 minutes Plan discussed with: Patient, Other (RN) My Orders My Orders Orders - NADIA CISNEROS Procedure Category Date Status Time Out Of Bed Ambulate SUSSY 04/04/25 In Process 15:18 Communication Order ORDERS 04/04/25 Transmitted 22:22 * Fraud Examiner CONS 04/05/25 Transmitted Consult Full Liq Diet DIET 04/05/25 Transmitted Lunch Alum & Mag PHA 04/05/25 In Process Hydrox-Simethicone 14:00 Dietary Evaluation Review Comments: Nutrition Recommendation: 1) Advance to soft diet as medically feasible 2) Monitor PO intake, lab values, weight trend, and I/O Expected Outcomes/Goals: Intake to meet >75% estimated needs Fu 3-5 days Date of Service: Apr 05, 2025 Billing Provider: NADIA CISNEROS MOHAMMED RESIDENT Apr 05, 2025 14:23
[2025-04-05 17:00] VITALS: BP 117/69; PULSE 90; RESP 16; TEMP 98.5; O2SAT 99
[2025-04-05] MEDS ORDERED: POTASSIUM EFFERVESENT TAB 25 MEQ GT ONE (17:15)
[2025-04-05] MEDS: PANTOPRAZOLE 40 MG TAB PO SCH (17:16)
[2025-04-05] MEDS: MAGNESIUM OXIDE 400 MG TAB PO ONE (17:40)
[2025-04-05] MEDS: POTASSIUM EFFERVESENT TAB 25 MEQ PO ONE (17:40)
[2025-04-05] MEDS: MAALOX PLUS or MAALOX 30 ML PO PRN (20:08)
[2025-04-05 21:00] VITALS: BP 121/72; PULSE 95; RESP 18; TEMP 98.2; O2SAT 99
[2025-04-06] VITALS (7 sets, daily range): BP systolic 92–100; BP diastolic 49–67; PULSE 75–91; RESP 15–20; TEMP 97.5–98; O2SAT 95–99
[2025-04-06 05:49] LABS: Hematocrit 35.7 % (36.0-46.0); Hemoglobin 12.5 g/dL (12.2-16.2); Mean Corpuscular Hemoglobin 30.0 pg (28.0-32.0); Mean Corpuscular Volume 85.6 fL (80.0-100.0); Nucleated Red Blood Cells % 0.1 %
[2025-04-06 06:08] LABS: Albumin 3.8 g/dL (3.2-4.8); Alkaline Phosphatase 74 U/L (46-116); Anion Gap 14 (5-15); Calcium 8.9 mg/dL (8.7-10.4); Carbon Dioxide 25 mmol/L (20-31); Chloride 104 mmol/L (98-107); Glucose 77 mg/dL (74-106); Magnesium 1.9 mg/dL (1.6-2.6); Sodium 143 mmol/L (136-145); Total Protein 6.7 g/dL (5.7-8.2)
[2025-04-06 06:09] LABS: Alanine Aminotransferase 106 U/L (7-40); BUN/Creatinine Ratio 6.6 (10.0-20.0); Bilirubin, Total 0.4 mg/dL (0.2-1.0); Blood Urea Nitrogen < 5 mg/dL (9-23); Potassium 3.1 mmol/L (3.5-5.1)
[2025-04-06] MEDS: POTASSIUM EFFERVESENT TAB 25 MEQ PO ONE (07:00)
[2025-04-06] MEDS: MAGNESIUM SULFATE 1GM/100ML 100 ML IV ONE (07:06)
[2025-04-06] MEDS ORDERED: POTASSIUM EFFERVESENT TAB 25 MEQ PO ONE (07:45)
[2025-04-06 09:45] LABS: Urine Protein, UAD 1+ (Negative)
[2025-04-06] MEDS: LACTATED RINGER'S 1,000 ML IV ONE (11:13)
--- NOTE | 2025-04-06 12:41 | DVHPNRES ---
Progress Note Date Seen: Apr 06, 2025 Resident Creating Document: NADIA CISNEROS RESIDENT Medical Necessity Reason Pt with a Central, PICC or Fol: No Subjective Review of Systems This is a 24-year-old female without significant past medical history, presented to the ER with chief complain of abdominal pain, vomiting and headache. Patient reported that headache started 10 days back when she started fasting, pain is described as pressure-like in frontal area, 10/10, reduces in intensity with cold pack. Eventually, she started complaining of acid reflux, chest pain and abdominal pain 4 days ago. Chest pain is described as burning, 2/10, occurring with acid refluxes. She also complains being constipated since last 4 days, able to pass gas. Patient also has cramp like abdominal pain and vomiting. Abdominal pain is described as cramp like, 4/10, intermittent, radiating to the back. Vomiting started yesterday, watery, some blood seen, associated with chills. Patient also complains of increased urinary urgency. Initial lab workup revealed in case anion gap 18, hemoglobin A1c 5.1, AST 112, ALT 184, LDL> 168, beta hydroxybutyrate 4.5, urinalysis revealed ketones 4+, leukocyte esterase trace, WBC 8, bacteria few. Doppler study negative for DVT, liver ultrasound hepatic steatosis, chest x-ray no acute abnormality. Previous hospitalization: In 2021 for fasting for 30 days PMHx: No significant surgical or medical history Family history: Father has diabetes mellitus and hypertension Social history: Denies smoking, alcohol, recreational drug use. Lives in home with family, full code, next to kin is mother and father Home medication: No home medications Allergic history: No known allergies Patient was seen today at bedside, labs and chart reviewed. Patient reported MiraLax helping her, complained of mild nausea. Hypokalemia being corrected with potassium supplement. Ordered repeat urinalysis. Stool negative for shiga toxin. Objective vital signs Vital Sign Date Time Temp Pulse Resp B/P (MAP) Pulse Ox O2 Delivery O2 Flow Rate FiO2 04/06/25 05:00 97.5 75 16 95/57 (70) 99 97.5 04/05/25 20:00 Room Air* 0 21 Total Intake and Output 04/05/25 04/05/25 04/06/25 15:00 23:00 07:00 Intake Total 750 ml 218 ml Balance 750 ml 218 ml medications Current Medications Medications Dose Ordered Sig/Angel Route Start Time Stop Time Status Last Admin Dose Admin Acetaminophen 325 mg Q4HP PRN PO 04/02/25 21:45 04/06/25 09:16 325 MG Morphine Sulfate 2 mg Q4HPRN PRN IV 04/02/25 21:45 Ceftriaxone Sodium 50 ml @ 100 mls/hr Q24H IV 04/03/25 21:00 04/05/25 20:17 100 MLS/HR Ondansetron HCl 4 mg Q4HPRN PRN IV 04/02/25 22:15 04/05/25 17:16 4 MG Metronidazole 100 ml @ 100 mls/hr Q8HR IV 04/03/25 14:00 04/06/25 05:03 100 MLS/HR Al Hydrox/Mg Hydrox/Simethicone 15 ml Q8HP PO 04/05/25 14:00 04/06/25 05:02 15 ML Al Hydrox/Mg Hydrox/Simethicone 30 ml Q8HP PRN PO 04/05/25 11:15 04/05/25 20:08 30 ML Pantoprazole Sodium 40 mg BID@0600,1700 PO 04/05/25 17:00 04/06/25 05:02 40 MG Examination General examination- awake, alert, oriented HEENT- PEERLA, no acute nasal discharge Cardiovascular- S1-S2 audible, rate and rhythm regular, no murmur Respiratory- CTAB, no wheeze or rhonchi Gastrointestinal-abdomen nontender , bowel sound+. Nondistended Musculoskeletal-no acute joint swelling or tenderness or redness Lower extremity- no leg edema Neurological- cranial nerves intact, no acute dysarthria or dysphagia Psychiatry- denies depression or SI or HI Skin- no acute rash or purpura laboratory and microbiology Laboratory Tests 04/06/25 04:00 Test 04/06/25 04:00 Range/Units Serum Glucose 77 74-106 mg/dL Microbiology Date/Time Source Procedure Growth Status 04/04/25 15:30 Stool Stool Culture - Preliminary Resulted 04/04/25 15:30 Stool Shiga Toxin I & II - Final Resulted 04/02/25 14:12 Voided Urine Urine Culture - Final Complete Problem List/Assessment/Plan Problem List/Assessment/Plan Assessment/Plan # suspected UTI #Severe dehydration # suspected acute gastroenteritis #HEMA hemodynamically mediated (VMN) Repeat urinalysis revealed leukocyte esterase 1+, WBC 9, blood 1+. Ordered uterine culture -on ceftriaxone and metronidazole Avoiding nephrotoxins like NSAIDS, contrast -Stool negative for shiga toxin. #Fasting /starvation ketoacidosis #Metabolic acidosis secondary to above -continue current conservative managed #Acute infectious Gastroenteritis, possibly #Gastritis, possibly --continue Protonix p.o. as prescribed -Maalox as prescribed #Hepatic steatosis #Transaminitis #Hyperlipidemia -Ultrasound shows [id number] hepatic steatosis -monitor LFT Goals of care, Code status full code ; discussed with >15 minutes PUD prophylaxis: Pantoprazole DVT prophylaxis: Patient ambulating Plan discussed with Dr. Samayoa , nursing staff, Total time spent on patient evaluation, chart review, assessment and plan, discussion discussion >35 minutes Plan discussed with: Patient, Other (RN) My Orders My Orders Orders - NADIA CISNEROS Procedure Category Date Status Time Communication Order ORDERS 04/06/25 Transmitted 06:49 Soft Diet DIET 04/06/25 Transmitted Breakfast Potassium Chloride PHA 04/06/25 In Process (Potassium Chloride). 11:45 Dietary Evaluation Review Comments: Nutrition Recommendation: 1) Advance to soft diet as medically feasible 2) Monitor PO intake, lab values, weight trend, and I/O Expected Outcomes/Goals: Intake to meet >75% estimated needs Fu 3-5 days Date of Service: Apr 06, 2025 Billing Provider: TA SAMAYOA MD, MOHAMMED RESIDENT Apr 06, 2025 12:41
[2025-04-06] MEDS: POTASSIUM CHLORIDE 60 MEQ, LIDOCAINE 1% (LOCAL ANESTH.) 6 ML in SODIUM CHL 0.9% 500 ML IV ONE (13:41)
[2025-04-07] VITALS (7 sets, daily range): BP systolic 92–121; BP diastolic 58–79; PULSE 68–91; RESP 18–20; TEMP 97.8–98.8; O2SAT 96–99
[2025-04-07 05:53] LABS: Albumin 3.4 g/dL (3.2-4.8); Alkaline Phosphatase 70 U/L (46-116); Anion Gap 11 (5-15); Carbon Dioxide 26 mmol/L (20-31); Chloride 106 mmol/L (98-107); Magnesium 2.1 mg/dL (1.6-2.6); Sodium 143 mmol/L (136-145); Total Protein 6.0 g/dL (5.7-8.2)
[2025-04-07 06:01] LABS: Alanine Aminotransferase 79 U/L (7-40); BUN/Creatinine Ratio 7.4 (10.0-20.0); Bilirubin, Total 0.2 mg/dL (0.2-1.0); Blood Urea Nitrogen < 5 mg/dL (9-23); Calcium 8.5 mg/dL (8.7-10.4); Glucose 111 mg/dL (74-106); Potassium 3.2 mmol/L (3.5-5.1)
[2025-04-07] MEDS: POTASSIUM CHLORIDE 40 MEQ, LIDOCAINE 1% (LOCAL ANESTH.) 4 ML in SODIUM CHL 0.9% 250 ML IV ONE (14:06)
--- NOTE | 2025-04-07 16:57 | DVHPNRES ---
Progress Note Date Seen: Apr 07, 2025 Resident Creating Document: NADIA CISNEROS RESIDENT Medical Necessity Reason Pt with a Central, PICC or Fol: No Subjective Review of Systems This is a 24-year-old female without significant past medical history, presented to the ER with chief complain of abdominal pain, vomiting and headache. Patient reported that headache started 10 days back when she started fasting, pain is described as pressure-like in frontal area, 10/10, reduces in intensity with cold pack. Eventually, she started complaining of acid reflux, chest pain and abdominal pain 4 days ago. Chest pain is described as burning, 2/10, occurring with acid refluxes. She also complains being constipated since last 4 days, able to pass gas. Patient also has cramp like abdominal pain and vomiting. Abdominal pain is described as cramp like, 4/10, intermittent, radiating to the back. Vomiting started yesterday, watery, some blood seen, associated with chills. Patient also complains of increased urinary urgency. Initial lab workup revealed in case anion gap 18, hemoglobin A1c 5.1, AST 112, ALT 184, LDL> 168, beta hydroxybutyrate 4.5, urinalysis revealed ketones 4+, leukocyte esterase trace, WBC 8, bacteria few. Doppler study negative for DVT, liver ultrasound hepatic steatosis, chest x-ray no acute abnormality. Previous hospitalization: In 2021 for fasting for 30 days PMHx: No significant surgical or medical history Family history: Father has diabetes mellitus and hypertension Social history: Denies smoking, alcohol, recreational drug use. Lives in home with family, full code, next to kin is father Home medication: No home medications Allergic history: No known allergies Patient was seen today at bedside, labs and chart reviewed. Patient reported feeling better today but still ongoing some nausea. Serum potassium 3.2, supplemented. Pending urine culture report. Objective vital signs Vital Sign Date Time Temp Pulse Resp B/P (MAP) Pulse Ox O2 Delivery O2 Flow Rate FiO2 04/07/25 13:00 98.8 85 20 114/70 (85) 96 98.8 04/07/25 08:00 Room Air* 0 21 Total Intake and Output 04/06/25 04/06/25 04/07/25 15:00 23:00 07:00 Intake Total 1000 ml 950 ml 400 ml Balance 1000 ml 950 ml 400 ml medications Current Medications Medications Dose Ordered Sig/Angel Route Start Time Stop Time Status Last Admin Dose Admin Acetaminophen 325 mg Q4HP PRN PO 04/02/25 21:45 04/07/25 12:59 325 MG Morphine Sulfate 2 mg Q4HPRN PRN IV 04/02/25 21:45 Ceftriaxone Sodium 50 ml @ 100 mls/hr Q24H IV 04/03/25 21:00 04/06/25 21:05 100 MLS/HR Ondansetron HCl 4 mg Q4HPRN PRN IV 04/02/25 22:15 04/05/25 17:16 4 MG Metronidazole 100 ml @ 100 mls/hr Q8HR IV 04/03/25 14:00 04/07/25 05:13 100 MLS/HR Al Hydrox/Mg Hydrox/Simethicone 15 ml Q8HP PO 04/05/25 14:00 04/07/25 14:35 15 ML Pantoprazole Sodium 40 mg BID@0600,1700 PO 04/05/25 17:00 04/07/25 05:13 40 MG Examination General examination- awake, alert, oriented; morbid obesity HEENT- PEERLA, no acute nasal discharge Cardiovascular- S1-S2 audible, rate and rhythm regular, no murmur Respiratory- CTAB, no wheeze or rhonchi Gastrointestinal-abdomen nontender , bowel sound+. Nondistended Musculoskeletal-no acute joint swelling or tenderness or redness Lower extremity- no leg edema Neurological- cranial nerves intact, no acute dysarthria or dysphagia Psychiatry- denies depression or SI or HI Skin- no acute rash or purpura laboratory and microbiology Laboratory Tests 04/07/25 05:05 04/06/25 04:00 Test 04/07/25 05:05 Range/Units Serum Glucose 111 H 74-106 mg/dL Microbiology Date/Time Source Procedure Growth Status 04/06/25 09:27 Voided Urine Urine Culture - Preliminary Resulted 04/04/25 15:30 Stool Stool Culture - Final Complete 04/04/25 15:30 Stool Shiga Toxin I & II - Final Complete Labs and/or images reviewed: Labs reviewed by me, Image(s) reviewed by me Problem List/Assessment/Plan Problem List/Assessment/Plan Assessment/Plan # suspected UTI # Severe dehydration # suspected acute gastroenteritis # HEMA hemodynamically mediated (VMN) -Repeat urinalysis revealed leukocyte esterase 1+, WBC 9, blood 1+. Pending urine culture -on ceftriaxone and metronidazole Avoiding nephrotoxins like NSAIDS, contrast -Stool negative for shiga toxin. # Refractory Hypokalemia -ordered mg level -scheduled potassium -ordered cortisol levels #Starvation ketoacidosis #Metabolic acidosis secondary to above -continue current conservative managed -on ceftriaxone and metronidazole #Acute infectious Gastroenteritis, possibly #Gastritis, possibly -continue Protonix p.o. as prescribed -Maalox as prescribed -on ceftriaxone and metronidazole #Hepatic steatosis #Transaminitis #Hyperlipidemia -Ultrasound shows [id number] hepatic steatosis -monitor LFT Morbid obesity Counseled the patient importance of adopting healthy lifestyle with diet and exercise in order to lose weight Goals of care discussed with the patient for 20 minutes, Code status full code PUD prophylaxis: Pantoprazole DVT prophylaxis: Patient ambulating Plan discussed with Dr. Newell , nursing staff, Plan discussed with: Patient, Other (RN) My Orders My Orders Orders - NADIA CISNEROS RESIDENT Procedure Category Date Status Time * French Drawer CONS 04/07/25 Transmitted Consult Dietary Evaluation Review Comments: Nutrition Recommendation: 1) Advance to soft diet as medically feasible 2) Monitor PO intake, lab values, weight trend, and I/O Expected Outcomes/Goals: Intake to meet >75% estimated needs Fu 3-5 days Date of Service: Apr 07, 2025 Billing Provider: FERNANDO NEWELL MD Common Visit Codes: 44259-[id number] INP/OBS CARE(HIGH) Secondary Visit Codes: 96036-[id number] CARE PLAN 30 MINUTES (20 minutes) Addendum Addendum Addendum I was physically present for the talley portions of the service provided to patient by THE RESIDENT. I have reviewed the documentation, discussed the case with resident and agree with the resident's documentation except as noted. Also the patient's clinical case was discussed with the patient's nurse. This medical document was created using an electronic medical record system with computerized dictation system. Although this document has been carefully reviewed, there might still be some phonetic and typographical errors. These areas are purely typographical due to imperfections of the software programs, and do not reflect any compromise in the patient's medical care. Late signature. NADIA CISNEROS RESIDENT Apr 07, 2025 16:57 ANAI FOWLER Apr 08, 2025 06:15 FERNANDO NEWELL MD Apr 09, 2025 15:34
[2025-04-08 01:00] VITALS: BP 100/60; PULSE 78; RESP 18; TEMP 98; O2SAT 96
[2025-04-08 05:00] VITALS: BP 102/63; PULSE 73; RESP 18; TEMP 97.9; O2SAT 97
[2025-04-08] MEDS ORDERED: POTASSIUM CHL 20MEQ/100ML 100 ML IV ONE (07:30)
[2025-04-08] MEDS: POTASSIUM CHL 20 Meq TABLET PO ONE (07:30)
[2025-04-08 07:46] LABS: Hematocrit 35.2 % (36.0-46.0); Hemoglobin 12.0 g/dL (12.2-16.2); Mean Corpuscular Hemoglobin 29.2 pg (28.0-32.0); Mean Corpuscular Volume 85.6 fL (80.0-100.0); Nucleated Red Blood Cells % 0.2 %
[2025-04-08 07:55] LABS: Chloride 106 mmol/L (98-107); Sodium 144 mmol/L (136-145)
[2025-04-08 07:56] LABS: Anion Gap 8 (5-15); Carbon Dioxide 30 mmol/L (20-31)
[2025-04-08 08:00] VITALS: PULSE 93; RESP 18; O2SAT 99
[2025-04-08 08:01] LABS: Calcium 8.1 mg/dL (8.7-10.4); Potassium 3.5 mmol/L (3.5-5.1)
[2025-04-08 08:02] LABS: BUN/Creatinine Ratio 6.7 (10.0-20.0); Blood Urea Nitrogen < 5 mg/dL (9-23); Glucose 110 mg/dL (74-106); Magnesium 2.0 mg/dL (1.6-2.6)
[2025-04-08 09:00] VITALS: BP 110/76; PULSE 93; RESP 18; TEMP 97.6; O2SAT 99
[2025-04-08] MEDS: POTASSIUM CHL 20 Meq TABLET PO SCH (09:59)
--- NOTE | 2025-04-08 12:52 | DVHDSRES ---
Discharge Summary Date of Admission Resident Creating Document: ASIM TRIVEDI RESIDENT Apr 02, 2025 at 22:06 Date of Discharge: Apr 08, 2025 Admitting Diagnosis Abdominal pain with vomiting and headache Labs/Diagnostic Data: Laboratory Results Test 04/08/25 07:34 04/07/25 11:54 04/07/25 05:05 04/06/25 09:27 White Blood Count 3.8 10^3/uL (4.4-10.8) Red Blood Count 4.11 10^6/uL (4.0-5.20) Hemoglobin 12.0 g/dL (12.2-16.2) Hematocrit 35.2 % (36.0-46.0) Mean Corpuscular Volume 85.6 fL (80.0-100.0) Mean Corpuscular Hemoglobin 29.2 pg (28.0-32.0) Mean Corpuscular Hemoglobin Concent 34.1 g/dL (32.0-36.0) Red Cell Distribution Width 14.1 % (11.8-14.3) Platelet Count 187 10^3/uL (140-450) Mean Platelet Volume 8.8 fL (6.9-10.8) Neutrophils (%) (Auto) 39.1 % (37.0-80.0) Lymphocytes (%) (Auto) 48.7 % (10.0-50.0) Monocytes (%) (Auto) 9.7 % (0.0-12.0) Eosinophils (%) (Auto) 1.8 % (0.0-7.0) Basophils (%) (Auto) 0.7 % (0.0-2.0) Neutrophils # (Auto) 1.5 10 ^3/uL (1.6-8.6) Lymphocytes # (Auto) 1.9 10 ^3/uL (0.4-5.4) Monocytes # (Auto) 0.4 10 ^3/uL (0-1.3) Eosinophils # (Auto) 0.1 10 ^3/uL (0-0.8) Basophils # (Auto) 0 10 ^3/uL (0-0.2) Nucleated Red Blood Cells 0.2 % Sodium Level 144 mmol/L (136-145) Potassium Level 3.5 mmol/L (3.5-5.1) Chloride Level 106 mmol/L (98-107) Carbon Dioxide Level 30 mmol/L (20-31) Anion Gap 8 (5-15) Blood Urea Nitrogen < 5 mg/dL (9-23) Creatinine 0.75 mg/dL (0.550-1.02) Glomerular Filtration Rate Calc 115 mL/min (>90) BUN/Creatinine Ratio 6.7 (10.0-20.0) Serum Glucose 110 mg/dL (74-106) Calcium Level 8.1 mg/dL (8.7-10.4) Magnesium Level 2.0 mg/dL (1.6-2.6) Total Bilirubin 0.2 mg/dL (0.2-1.0) Aspartate Amino Transferase (AST) 45 U/L (13-40) Alanine Aminotransferase (ALT) 79 U/L (7-40) Alkaline Phosphatase 70 U/L (46-116) Total Protein 6.0 g/dL (5.7-8.2) Albumin 3.4 g/dL (3.2-4.8) Urine Color Yellow (Yellow) Urine Clarity Turbid (Clear) Urine pH 6.5 (5.0-9.0) Urine Specific [place] 1.020 (1.001-1.035) Urine Protein 1+ (Negative) Urine Ketones 4+ (Negative) Urine Blood 1+ /uL (Negative) Urine Nitrite Negative (Negative) Urine Bilirubin Negative (Negative) Urine Urobilinogen Normal mg/dL (Negative) Urine Leukocyte Esterase 1+ /uL (Negative) Urine RBC 12 /hpf (0 - 4) Urine Microscopic WBC 9 /HPF (0-5) Urine Squamous Epithelial Cells Few /hpf (<5) Urine Bacteria None seen /hpf (None Seen) Urine Mucus Few (None Seen) Urine Glucose Normal mg/dL (Normal) Test 04/04/25 15:30 04/03/25 02:56 04/02/25 22:51 04/02/25 20:50 Stool for White Cells None seen Hemoglobin A1c 5.1 % A1C (<5.7) Phosphorus Level 3.1 mg/dL (2.4-5.1) Blood Gas Specimen Type Arterial Blood Gas Sample Site Right radial Blood Gas Patient Temperature 37.0 Arterial Blood Date Drawn [id number] Arterial Blood pH 7.295 (7.350-7.450) Arterial Blood Partial Pressure CO2 21.6 mmHg (32.0-45.0) Arterial Blood Partial Pressure O2 99.0 mmHg (83.0-108.0) Arterial Blood HCO3 10.3 mmol/L (21.0-28.0) Arterial Blood Oxygen Saturation 97.4 % (94.0-98.0) Arterial Blood Base Excess -13.8 mmol/L (-2.0-3.0) Arterial Blood Oxyhemoglobin 97.2 % (94.0-98.0) Arterial Blood Carboxyhemoglobin 0.1 % (0.5-1.5) Arterial Blood Methemoglobin 0.1 % (0.0-1.5) Royer Test Modified Blood Gas Total Hemoglobin 15.40 g/dL (12.0-16.0) Blood Gas Modality Room air FiO2 % 21.0 Prothrombin Time 11.8 sec (9.3-11.8) Prothrombin Time INR 1.13 (0.9-1.15) Activated Partial Thromboplast Time 28.7 SEC (24.5-34.5) Hepatitis A IgM Antibody Negative Hepatitis B Surface Antigen Negative (Negative) Hepatitis B Core IgM Antibody Negative (Negative) Hepatitis C Antibody Negative (Negative) Test 04/02/25 14:13 04/02/25 14:12 Direct Bilirubin 0.2 mg/dL (<0.3) C-Reactive Protein High Sensitivity 0.57 mg/dL (<1.0) Triglycerides Level 106 mg/dL (< 150) Cholesterol Level 216 mg/dL (< 200) LDL Cholesterol 169 mg/dL (< 100) HDL Cholesterol 37 mg/dL (40-59) Vitamin B12 Level 1352 pg/mL (211-911) Vitamin D 25-Hydroxy 9.3 ng/mL (30.0-100) Beta-Hydroxybutyric Acid > 4.500 mmol/L (< 0.4) Thyroid Stimulating Hormone (TSH) 1.10 uIU/mL (0.55-4.78) Urine Test Negative (Negative) Urine Opiates Screen Neg (NEGATIVE) Urine Fentanyl Screen Neg (NEGATIVE) Urine Barbiturates Screen Neg (NEGATIVE) Urine Phencyclidine Screen Neg (NEGATIVE) Urine Amphetamines Screen Neg (NEGATIVE) Urine Benzodiazepines Screen Neg (NEGATIVE) Urine Cocaine Screen Neg (NEGATIVE) Urine Cannabinoids Screen Neg (NEGATIVE) Other Laboratory Tests 04/08/25 07:34 Brief Hx & Hospital Course: Brief history of hospitalization: This is a 24-year-old female without significant past medical history, presented to the ER with chief complain of abdominal pain, vomiting and headache. Evaluated for acute gastroenteritis, severe dehydration and UTI. A repeat urine analysis revealed leukocyte esterase 1+, WBC 9, blood 1+. We sent a urine culture and preliminary culture shows no growth. We started the patient on IV fluids and gave ceftriaxone and metronidazole antibiotics intravenously. We avoided any nephrotoxic agents like NSAIDs use and contrast. Stool test was negative for Shiga toxin. In the labs we checked patient had refractory hypokalemia and we ordered magnesium. Scheduled potassium was given to the patient daily. We believe the patient had starvation ketoacidosis and metabolic acidosis due to starvation ketoacidosis. We continued conservative management and antibiotics. We also gave the patient Protonix and Maalox to cover any infectious gastroenteritis. SP transaminitis in the labs, an ultrasound was done of the abdomen which showed [id number] hepatic steatosis. We continue to monitor the LFT in counseled the patient on the need of improved diet, exercise. Patient is now doing much better and is stable for discharge. Patient has communicated understanding and agreed to the discharge plan. Patient has been counseled to drink plenty of water Physical exam on the day of discharge: General examination- awake, alert, oriented HEENT- PEERLA, no acute nasal discharge Cardiovascular- S1-S2 audible, rate and rhythm regular, no murmur Respiratory- CTAB, no wheeze or rhonchi Gastrointestinal-abdomen nontender , bowel sound+. Nondistended Musculoskeletal-no acute joint swelling or tenderness or redness Lower extremity- no leg edema Neurological- cranial nerves intact, no acute dysarthria or dysphagia Psychiatry- denies depression or SI or HI Skin- no acute rash or purpura Discharge discussed with Dr. Newell Operations or Procedures Bilateral lower extremity venous duplex Clinical History: Bilateral lower extremity swelling Impression: No right or left femoropopliteal venous thrombosis. PROCEDURE(s): LIVUS - LIVER REASON: Transaminitis IMPRESSION: No acute abnormality. Moderate to severe hepatic steatosis. PROCEDURE(s): KUB - KUB ABDOMEN SINGLE VIEW REASON: Rule out obstruction IMPRESSION: Nonobstructive bowel gas pattern. Condition at Discharge: Stable Final Diagnosis/Problems List # Acute infectious Gastroenteritis # Starvation ketoacidosis # Metabolic acidosis secondary to above # acute UTI # Severe dehydration # HEMA hemodynamically mediated (VMN) # Refractory Hypokalemia # Gastritis #Hepatic steatosis #Transaminitis #Hyperlipidemia Discharge Disposition: Home Discharge Instruct/Medications Diet: Consistent carbohydrate, Cardiac 2g Na,low cholest Activity: No Restrictions, As Tolerated Follow Up/Referral: Follow up with primary care physician in 10 days Follow up at discharge clinic on 04/12/2025 Medications: Resume all home medications taken No Active Prescriptions or Reported Meds Discharge Statement: "Patient was advised to return to the ER or call 911 if any headaches, dizziness, shortness of breath, chest pain, abdominal pain, bleeding, fevers, or worsening of medical condition. Patient was counseled about treatment plan, medications, possible side effects, patientverbalized understanding. All questions were answered to the best of my ability. This discharge took greater then 30 minutes in planning, reviewing documentation, counseling the patient, and discussing with other team members." ASSESSMENT ASSESSMENT Assessment Date of Service: Apr 08, 2025 Billing Provider: FERNANDO NEWELL MD Common Visit Codes: 18608-HAN/OBS DISCH DAY >30min Addendum Addendum Addendum I was physically present for the talley portions of the service provided to patient by THE RESIDENT. I have reviewed the documentation, discussed the case with resident and agree with the resident's documentation except as noted. Also the patient's clinical case was discussed with the patient's nurse. This medical document was created using an electronic medical record system with computerized dictation system. Although this document has been carefully reviewed, there might still be some phonetic and typographical errors. These areas are purely typographical due to imperfections of the software programs, and do not reflect any compromise in the patient's medical care. Late signature. ASIM TRIVEDI Apr 08, 2025 12:52 FERNANDO NEWELL MD Apr 09, 2025 15:37
[2025-04-08 13:00] VITALS: BP 109/75; PULSE 83; RESP 18; TEMP 97.9; O2SAT 98
== END 2025-04-08 15:33 | disposition home or self-care (01) | DRG 249 ==
LOC: ER 12:49 → UNDOADMIN 21:45 → OVERFLOW 21:45 → TELE-EAST 04-04 14:20 → EAST 04-04 16:24
PROVIDERS: ADMIT Internal Medicine; ATTEND Internal Medicine
DX: A09 Infectious gastroenteritis and colitis, unspecified (principal); N17.0 Acute kidney failure with tubular necrosis; E87.29 Other acidosis; N39.0 Urinary tract infection, site not specified; E86.0 Dehydration; E87.6 Hypokalemia; Z68.38 Body mass index [BMI] 38.0-38.9, adult; K29.70 Gastritis, unspecified, without bleeding; K76.0 Fatty (change of) liver, not elsewhere classified; E78.5 Hyperlipidemia, unspecified; R74.01 Elevation of levels of liver transaminase levels; E66.01 Morbid (severe) obesity due to excess calories
CPT/HCPCS: 36415; 36600; 74018; 76705; 80048; 80053; 80061; 80074; 80076; 80307; 81001; 81025; 82010; 82024; 82306; 82533; 82607; 82805; 83036; 83735; 84100; 84132; 84443; 85025; 85048; 85610; 85730; 86141; 87045; 87086; 87427; 93005; 93970; 96365; 96375; G0378; J2003; J2405; J2470; J3490